=== PATIENT | female | born 1980 | race Caucasian/White ===

== ENCOUNTER → 2024-06-20 | Outpatient (CLI) | payer BC ==
[2024-06-20 19:29] LABS: PERCENT SATURATION 15.4 % (13.2-45.0)
[2024-06-20 19:32] LABS: FOLLICLE STIMULATING HORMONE 1.1 mIU/ML; LUTEINIZING HORMONE 0.2 mIU/ML
== END ==
LOC: M WUC 12:34
PROVIDERS: ATTEND Student in an Organized Health Care Education/Training Program
DX: R45.4 Irritability and anger (principal)